=== PATIENT | female | born 1945 | race Caucasian/White ===

== ENCOUNTER → 2020-09-08 | Outpatient (CLI) | payer MEDICARE, OTHER | END | disposition home or self-care (01) | LOC: CFH 11:00 | PROVIDERS: ATTEND Nurse Practitioner Family | DX: M85.88 Other specified disorders of bone density and structure, other site (principal); J30.2 Other seasonal allergic rhinitis; Z00.01 Encounter for general adult medical examination with abnormal findings | CPT/HCPCS: 77080 ==